=== PATIENT | female | born 1995 | race Caucasian/White ===

== ENCOUNTER → 2016-12-11 | Outpatient (CLI) | payer BC | END | disposition home or self-care (01) | LOC: CDC 11:01 | DX: I49.9 Cardiac arrhythmia, unspecified (principal); R94.31 Abnormal electrocardiogram [ECG] [EKG] | CPT/HCPCS: 93000 ==

== ENCOUNTER → 2017-02-06 | Outpatient (CLI) | payer BC ==
[~2017-02-06] VITALS: Ht 165.1 cm; Wt 128.0 kg
[~2017-02-06] MED LIST: ASPIR 8181 M1 PO; LABETALOL HCL100 MG PO; PRENATAL TABLE1 EAC3 PO; PRENATAL VITAM1 EA10 PO
[2017-02-06 09:39] VITALS: BP 159/97
== END | disposition home or self-care (01) ==
LOC: IVINF 09:28
DX: Z31.82 Encounter for Rh incompatibility status (principal); Z3A.28 28 weeks gestation of pregnancy
CPT/HCPCS: 96372; J2790

== ENCOUNTER 2017-04-01 17:17 | Outpatient (CLI) | payer BC ==
[~2017-04-01] VITALS: Ht 165.1 cm; Wt 137.4 kg
[2017-04-01 17:37] VITALS: BP 145/88
[2017-04-01 18:00] VITALS: BP 141/70
[2017-04-01 18:06] LABS: EOSINOPHIL (%) 0.9 % (0-5); EOSINOPHIL COUNT 0.1 K/uL (0-0.3); HEMATOCRIT 33.5 % (36.0-46.0); IMMATURE GRANULOCYTE (%) 1.3 % (0.0-0.7); IMMATURE GRANULOCYTE COUNT 0.2 K/uL; INSTRUMENT ABS NEUTROPHIL CT 8.2 K/uL; LYMPHOCYTE COUNT 1.8 K/uL (1.0-2.8); MCH 28.9 PG (29.0-34.0); MCHC 32.8 G/DL (30.0-36.0); MCV 88.2 FL (83-99); MEAN PLAT.VOLUME 11.2 uM^3 (9.5-12.4); NEUTROPHIL (%) 72.4 % (45-76); NEUTROPHIL COUNT 8.2 K/uL (1.8-6.4); PLATELET COUNT 209 K/uL (156-360); RBC DIS.WIDTH-CV 14.6 % (11.8-14.6); RBC DIS.WIDTH-SD 47.3 % (39-53); WHITE BLOOD COUNT 11.4 K/uL (4.1-10.2)
[2017-04-01 18:27] VITALS: BP 147/79
[2017-04-01 18:29] LABS: ANION GAP 10 MEQ/L (2-14); CHLORIDE 108 MEQ/L (99-109); POTASSIUM 3.6 MEQ/L (3.7-5.4); SAMPLE HEMOLYSIS CHECK 0; SAMPLE ICTERIC CHECK 0; SAMPLE LIPEMIA CHECK 0; SODIUM 140 MEQ/L (136-147); TOTAL BILIRUBIN 0.1 MG/DL (0.0-1.0)
[2017-04-01 18:34] LABS: ALKALINE PHOSPHATASE 102 IU/L (3-129); GFR ESTIMATE (CALCULATED) > 59 mL/min/; GLUCOSE 91 mg/dL (70-99); LACTATE DEHYDROGENASE 166 IU/L (20-246); UREA NITROGEN (BUN) 8 mg/dL (9-23); URIC ACID 4.4 mg/dL (3.1-9.2)
[2017-04-01 19:07] LABS: ADD MIUA? YES; BILIRUBIN NEGATIVE; BLOOD NEGATIVE; COLOR YELLOW ((YELLOW)); GLUCOSE (STRIP) NEGATIVE; KETONES NEGATIVE; LEUKOCYTES MODERATE; NITRITE NEGATIVE; PROTEIN (STRIP) 30; SPECIFIC GRAVITY 1.019 (1.000-1.030); UROBILINOGEN 0.2 MG/DL (0.2-1.0)
[2017-04-01 19:14] VITALS: BP 147/92
[2017-04-01 19:24] LABS: AMPHETAMINE NEGATIVE (500 ng/mL); BARBITURATES NEGATIVE (200 ng/mL); BENZODIAZEPINES NEGATIVE (150 ng/mL); COCAINE NEGATIVE (150 ng/mL); INTERNAL CONTROLS VALID? YES; METHADONE NEGATIVE (200 ng/mL); METHAMPHETAMINE NEGATIVE (500 ng/mL); OPIATES (MORPHINE) NEGATIVE (100 ng/mL); OXYCODONE NEGATIVE (100 ng/mL); PHENCYCLIDINE NEGATIVE (25 ng/mL); PROPOXYPHENE NEGATIVE (300 ng/mL); THC CANNABINOIDS NEGATIVE (50 ng/mL); TRICYCLIC ANTIDEPRESSANTS NEGATIVE (300 ng/mL)
[2017-04-01 19:28] LABS: UR CREATININE CONCENTRATION 184.1 MG/DL
[2017-04-01] MEDS ORDERED: LABETALOL HCL200 MG PO (19:50)
[2017-04-01 20:00] LABS: BACTERIA NONE SEEN /HPF; EPITHELIAL CELLS 1+ /HPF; HYALINE CASTS 0-5 /LPF; MUCUS 1+ /LPF; RED BLOOD CELLS 0-5 /HPF (0-5); UCUL ADDED? YES; WHITE BLOOD CELLS 15-20 /HPF (0-5)
== END 2017-04-01 20:00 | disposition home or self-care (01) ==
LOC: LDRP-OP → 2WEST 17:18 → LDRP-OP 06-01 08:46
PROVIDERS: Advanced Practice Midwife
DX: O10.913 Unspecified pre-existing hypertension complicating pregnancy, third trimester (principal); Z3A.35 35 weeks gestation of pregnancy
CPT/HCPCS: 59025; 80053; 81003; 82570; 83615; 84156; 84550; 85025; 87086; G0378

== ENCOUNTER 2017-04-08 22:38 | Outpatient (CLI) | payer BC ==
[~2017-04-08] VITALS: Ht 165.1 cm; Wt 139.7 kg
[~2017-04-08 22:38] MED LIST changes: +LABETALOL HCL200 MG PO
[2017-04-08 22:54] VITALS: BP 167/89
[2017-04-08] MEDS ORDERED: LABETALOL HCL300 MG PO (23:01)
[2017-04-08 23:46] VITALS: BP 144/82
[2017-04-09 00:07] VITALS: BP 152/67
[2017-04-09 00:23] VITALS: BP 153/65
[2017-04-09 01:05] VITALS: BP 133/77
== END 2017-04-09 01:30 | disposition home or self-care (01) ==
LOC: LDRP-OP 22:38 → 2WEST 22:39 → LDRP-OP 06-01 20:25
DX: O10.013 Pre-existing essential hypertension complicating pregnancy, third trimester (principal); Z3A.36 36 weeks gestation of pregnancy
CPT/HCPCS: 59025; G0378

== ENCOUNTER 2017-04-10 15:59 | Inpatient (IN) | payer BC ==
[2017-04-10] VITALS (11 sets, daily range): BP systolic 137–192; BP diastolic 70–95
[~2017-04-10] VITALS: Ht 165.1 cm; Wt 140.6 kg
[~2017-04-10 15:59] MED LIST changes: +LABETALOL HCL300 MG PO
[2017-04-10 17:27] LABS: EOSINOPHIL (%) 1.2 % (0-5); EOSINOPHIL COUNT 0.1 K/uL (0-0.3); HEMATOCRIT 34.1 % (36.0-46.0); IMMATURE GRANULOCYTE (%) 2.3 % (0.0-0.7); IMMATURE GRANULOCYTE COUNT 0.3 K/uL; INSTRUMENT ABS NEUTROPHIL CT 7.8 K/uL; LYMPHOCYTE COUNT 1.7 K/uL (1.0-2.8); MCH 30.2 PG (29.0-34.0); MCHC 33.7 G/DL (30.0-36.0); MCV 89.5 FL (83-99); MEAN PLAT.VOLUME 11.9 uM^3 (9.5-12.4); MONOCYTE (%) 9.5 % (3-12); NEUTROPHIL (%) 71.2 % (45-76); NEUTROPHIL COUNT 7.8 K/uL (1.8-6.4); PLATELET COUNT 159 K/uL (156-360); RBC DIS.WIDTH-CV 14.9 % (11.8-14.6); RBC DIS.WIDTH-SD 48.4 % (39-53); RED BLOOD COUNT 3.81 M/uL (3.80-5.20); WHITE BLOOD COUNT 10.9 K/uL (4.1-10.2)
[2017-04-10 17:36] LABS: ANION GAP 8 MEQ/L (2-14); CHLORIDE 106 MEQ/L (99-109); POTASSIUM 3.9 MEQ/L (3.7-5.4); SAMPLE HEMOLYSIS CHECK 0; SAMPLE ICTERIC CHECK 0; SAMPLE LIPEMIA CHECK 0; SODIUM 138 MEQ/L (136-147); TOTAL BILIRUBIN 0.1 MG/DL (0.0-1.0)
[2017-04-10 17:42] LABS: ALKALINE PHOSPHATASE 106 IU/L (3-129); GFR ESTIMATE (CALCULATED) > 59 mL/min/; GLUCOSE 85 mg/dL (70-99); LACTATE DEHYDROGENASE 173 IU/L (20-246); UREA NITROGEN (BUN) 9 mg/dL (9-23); URIC ACID 4.4 mg/dL (3.1-9.2)
[2017-04-11] VITALS (24 sets, daily range): BP systolic 88–184; BP diastolic 42–89
[2017-04-11 00:28] LABS: ADD MIUA? YES; BILIRUBIN NEGATIVE; BLOOD NEGATIVE; COLOR STRAW ((YELLOW)); GLUCOSE (STRIP) NEGATIVE; KETONES NEGATIVE; LEUKOCYTES LARGE; NITRITE NEGATIVE; PROTEIN (STRIP) NEGATIVE; SPECIFIC GRAVITY 1.006 (1.000-1.030); UROBILINOGEN 0.2 MG/DL (0.2-1.0)
[2017-04-11 00:36] LABS: BACTERIA RARE /HPF; EPITHELIAL CELLS 1+ /HPF; MUCUS TRACE /LPF; RED BLOOD CELLS 0-5 /HPF (0-5); UCUL ADDED? NO; WHITE BLOOD CELLS 0-5 /HPF (0-5)
[2017-04-11 01:23] LABS: UR CREATININE CONCENTRATION 43.7 MG/DL
[2017-04-12] VITALS: BP 134/75
[2017-04-12 07:21] LABS: BASOPHIL COUNT 0.1 K/uL (0-0.1); EOSINOPHIL (%) 0.6 % (0-5); EOSINOPHIL COUNT 0.1 K/uL (0-0.3); HEMATOCRIT 33.7 % (36.0-46.0); IMMATURE GRANULOCYTE (%) 1.9 % (0.0-0.7); IMMATURE GRANULOCYTE COUNT 0.3 K/uL; INSTRUMENT ABS NEUTROPHIL CT 10.6 K/uL; MCHC 31.8 G/DL (30.0-36.0); MCV 91.3 FL (83-99); MEAN PLAT.VOLUME 11.1 uM^3 (9.5-12.4); MONOCYTE (%) 8.4 % (3-12); MONOCYTE COUNT 1.2 K/uL (0-0.8); NEUTROPHIL (%) 74.4 % (45-76); NEUTROPHIL COUNT 10.6 K/uL (1.8-6.4); PLATELET COUNT 180 K/uL (156-360); RBC DIS.WIDTH-CV 15.9 % (11.8-14.6); RBC DIS.WIDTH-SD 52.9 % (39-53); RED BLOOD COUNT 3.69 M/uL (3.80-5.20); WHITE BLOOD COUNT 14.2 K/uL (4.1-10.2)
[2017-04-12 12:10] VITALS: BP 179/89
[2017-04-12 16:30] VITALS: BP 166/90
[2017-04-12 19:23] VITALS: BP 153/90
[2017-04-13] VITALS (13 sets, daily range): BP systolic 124–178; BP diastolic 61–97
[2017-04-13 08:05] LABS: EOSINOPHIL (%) 2.6 % (0-5); EOSINOPHIL COUNT 0.3 K/uL (0-0.3); HEMATOCRIT 31.7 % (36.0-46.0); IMMATURE GRANULOCYTE (%) 2.5 % (0.0-0.7); IMMATURE GRANULOCYTE COUNT 0.3 K/uL; INSTRUMENT ABS NEUTROPHIL CT 6.7 K/uL; LYMPHOCYTE COUNT 1.9 K/uL (1.0-2.8); MCH 28.9 PG (29.0-34.0); MCHC 31.5 G/DL (30.0-36.0); MCV 91.6 FL (83-99); MEAN PLAT.VOLUME 11.3 uM^3 (9.5-12.4); MONOCYTE (%) 9.1 % (3-12); MONOCYTE COUNT 0.9 K/uL (0-0.8); NEUTROPHIL (%) 66.6 % (45-76); NEUTROPHIL COUNT 6.7 K/uL (1.8-6.4); PLATELET COUNT 186 K/uL (156-360); RBC DIS.WIDTH-CV 15.5 % (11.8-14.6); RBC DIS.WIDTH-SD 51.4 % (39-53); RED BLOOD COUNT 3.46 M/uL (3.80-5.20); WHITE BLOOD COUNT 10.1 K/uL (4.1-10.2)
[2017-04-14 03:00] VITALS: BP 145/74
[2017-04-14] MEDS ORDERED: LABETALOL HCL100 MG PO (07:30)
[2017-04-14] MEDS ORDERED: IBUPROFEN800 MG PO (07:30)
[2017-04-14] MEDS ORDERED: Procardia XL,Adalat PO (07:30)
[2017-04-14] MEDS ORDERED: ENDOCET 5-3251 EACH PO (07:30)
[2017-04-14] MEDS ORDERED: PROCARDIA XL60 MG PO (07:33)
[2017-04-14 08:15] VITALS: BP 150/90
[2017-04-14] MEDS ORDERED: MOTRIN800 MG PO (08:53)
== END 2017-04-14 12:59 | disposition home or self-care (01) | DRG 765 ==
LOC: LDRP-OP 15:59 → 2WEST 16:01 → LDRP-OP 06-01 01:39
PROVIDERS: Advanced Practice Midwife; Obstetrics & Gynecology
PROC: 3E0P7GC Introduction of Other Therapeutic Substance into Female Reproductive, Via Natural or Artificial Opening (ICD-10-PCS; principal; 2017-04-10)
PROC: 4A1H74Z Monitoring of Products of Conception, Cardiac Electrical Activity, Via Natural or Artificial Opening (ICD-10-PCS; 2017-04-10)
PROC: 10D00Z1 Extraction of Products of Conception, Low, Open Approach (ICD-10-PCS; 2017-04-11)
DX: O11.4 Pre-existing hypertension with pre-eclampsia, complicating childbirth (principal); O76 Abnormality in fetal heart rate and rhythm complicating labor and delivery; O99.214 Obesity complicating childbirth; E66.01 Morbid (severe) obesity due to excess calories; Z68.41 Body mass index [BMI] 40.0-44.9, adult; O69.81X0 Labor and delivery complicated by cord around neck, without compression, not applicable or unspecified; O99.02 Anemia complicating childbirth; D64.9 Anemia, unspecified; Z3A.37 37 weeks gestation of pregnancy; Z37.0 Single live birth
CPT/HCPCS: 59025; 80053; 81003; 82570; 83030; 83615; 84156; 84550; 85025; 85384; 86850; 86870; 86900; 86901; 86905; 86920; 87077; 87086; 87186; 88307; G0378; J0360; J2274; J2590; J2790; J7120